=== PATIENT | female | born 1995 | race Caucasian/White ===

== ENCOUNTER → 2021-01-23 | Outpatient (CLI) | payer MEDICAID ==
[2021-01-23 12:30] LABS: BASOPHILS % (AUTO) 0 % (0-10); EOSINOPHILS # (AUTO) 0.2 10^3/uL (0.0-0.3); EOSINOPHILS % (AUTO) 2 % (0-10); HEMATOCRIT 39 % (35-52); HEMOGLOBIN 13.4 g/dL (11.5-16.0); LYMPHOCYTES # (AUTO) 1.4 X 10^3 (1.0-4.0); LYMPHOCYTES % (AUTO) 12 % (12-44); MEAN CORPUSCULAR HEMOGLOBIN 31 pg (25-34); MEAN CORPUSCULAR HGB CONC 34 g/dL (32-36); MEAN CORPUSCULAR VOLUME 90 fL (80-99); MEAN PLATELET VOLUME 10.7 fL (9.0-12.2); MONOCYTES # (AUTO) 0.9 X 10^3 (0.0-1.0); MONOCYTES % (AUTO) 8 % (0-12); NEUTROPHILS # (AUTO) 9.5 X 10^3 (1.8-7.8); NEUTROPHILS % (AUTO) 79 % (42-75); PLATELET COUNT 219 10^3/uL (130-400)
[2021-01-23 12:56] LABS: CREATININE SERUM 0.76 MG/DL (0.60-1.30); POTASSIUM 4.2 MMOL/L (3.6-5.0)
[2021-01-23 12:57] LABS: ALBUMIN 3.5 GM/DL (3.2-4.5); BILIRUBIN,TOTAL 0.2 MG/DL (0.1-1.0); CALCIUM 9.2 MG/DL (8.5-10.1); TOTAL PROTEIN 6.3 GM/DL (6.4-8.2)
[2021-01-23 15:07] LABS: URIC ACID 6.5 MG/DL (2.6-7.2)
== END ==
LOC: LAB FS 11:55
PROVIDERS: ATTEND Family Medicine
DX: O16.3 Unspecified maternal hypertension, third trimester (principal)
CPT/HCPCS: 36415; 80053; 82570; 83615; 84156; 84550; 85025

== ENCOUNTER 2021-02-04 04:47 | Inpatient (IN) | payer MEDICAID ==
[~2021-02-04] VITALS: Ht 179 cm; Wt 109.0 kg
--- NOTE | 2021-02-04 05:28 | ED General ---
General Stated Complaint: LIVE Source of Information: Patient, EMS Exam Limitations: No Limitations History of Present Illness Date Seen by Provider: Feb 04, 2021 Time Seen by Provider: 05:00 Initial Comments 25-year-old female that has had 1 prior to term and numerous miscarriages that she is unsure how many coming in due to delivering a baby. Due date was February 20 making the baby 37 weeks and 5 days term. No complications with the per the mother. Delivered via EMS on the doorstep seconds before coming into the emergency department. EMS reports mom had normal vitals and no significant hemorrhage. Further elements of the history and physical unable to be obtained due to the acuity of the condition. Allergies and Home Medications Allergies Coded Allergies: amoxicillin (Verified Allergy, Unknown, 02/04/21) Patient Home Medication List Home Medication List Reviewed: Yes Vit W-Ca,Fe,FA(<1 mg) ( Vitamins) 1 Each Tablet, 1 EACH PO DAILY, (Reported) Entered as Reported by: NARENDRA COHEN on 02/04/21 0961 Last Action: New Order Review of Systems Review of Systems Constitutional: no symptoms reported EENTM: No blurred vision Respiratory: No cough Cardiovascular: No chest pain Gastrointestinal: No nausea Genitourinary: No dysuria Musculoskeletal: No back pain Skin: No rash Psychiatric/Neurological: No Symptoms Reported Hematologic/Lymphatic: No Symptoms Reported Immunological/Allergic: no symptoms reported All Other Systems Reviewed Negative Unless Noted: Yes Past Ueyrker-Mewkcs-Ywiqdm Hx Patient Social History Tobacco Use?: Yes Past Medical History : Yes Physical Exam Vital Signs Vital Signs - First Documented 02/04/21 04:47 Temp 36.8 Pulse 70 Resp 30 B/P (MAP) 142/94 (110) Pulse Ox 98 O2 Delivery Room Air Capillary Refill : Height, Weight, BMI Height: '" Weight: lbs. oz. kg; BMI Method: General Appearance: No Apparent Distress, WD/WN HEENT: PERRL/EOMI, Normal ENT Inspection, Pharynx Normal Neck: Full Range of Motion, Normal Inspection, Non Tender, Supple Respiratory: Chest Non Tender, Lungs Clear, Normal Breath Sounds, No Accessory Muscle Use, No Respiratory Distress Cardiovascular: Regular Rate, Rhythm, No Edema, Normal Peripheral Pulses Gastrointestinal: Normal Bowel Sounds, Non Tender, Soft, Other (Contracted nery hair) Genital/Rectal: Other (Placenta delivered, no vaginal bleeding, no large vaginal lacerations) Back: Normal Inspection Extremity: Normal Capillary Refill, Normal Inspection, Normal Range of Motion, Non Tender, No Calf Tenderness Neurologic/Psychiatric: Alert, No Motor/Sensory Deficits, Normal Mood/Affect Skin: Normal Color, Warm/Dry Lymphatic: No Adenopathy Progress/Results/Core Measures Suspected Sepsis SIRS Temperature: Pulse: Respiratory Rate: Laboratory Tests 02/04/21 05:30: White Blood Count 19.2H Blood Pressure / Mean: Laboratory Tests 02/04/21 05:30: Creatinine 0.63, Platelet Count 270 Results/Orders Lab Results Laboratory Tests Test 02/04/21 05:30 Range/Units White Blood Count 19.2 H 4.3-11.0 10^3/uL Red Blood Count 4.48 3.80-5.11 10^6/uL Hemoglobin 14.1 11.5-16.0 g/dL Hematocrit 40 35-52 % Mean Corpuscular Volume 90 80-99 fL Mean Corpuscular Hemoglobin 31 25-34 pg Mean Corpuscular Hemoglobin Concent 35 32-36 g/dL Red Cell Distribution Width 12.4 10.0-14.5 % Platelet Count 270 130-400 10^3/uL Mean Platelet Volume 10.8 9.0-12.2 fL Immature Granulocyte % (Auto) 0 % Neutrophils (%) (Auto) 90 H 42-75 % Lymphocytes (%) (Auto) 5 L 12-44 % Monocytes (%) (Auto) 4 0-12 % Eosinophils (%) (Auto) 0 0-10 % Basophils (%) (Auto) 0 0-10 % Neutrophils # (Auto) 17.2 H 1.8-7.8 X 10^3 Lymphocytes # (Auto) 1.0 1.0-4.0 X 10^3 Monocytes # (Auto) 0.8 0.0-1.0 X 10^3 Eosinophils # (Auto) 0.0 0.0-0.3 10^3/uL Basophils # (Auto) 0.0 0.0-0.1 10^3/uL Immature Granulocyte # (Auto) 0.1 0.0-0.1 10^3/uL Neutrophils % (Manual) 84 % Lymphocytes % (Manual) 8 % Monocytes % (Manual) 3 % Band Neutrophils 5 % Platelet Estimate ADEQUATE Blood Morphology Comment NORMAL Sodium Level 134 L 135-145 MMOL/L Potassium Level 3.9 3.6-5.0 MMOL/L Chloride Level 102 98-107 MMOL/L Carbon Dioxide Level 19 L 21-32 MMOL/L Anion Gap 13 5-14 MMOL/L Blood Urea Nitrogen 9 7-18 MG/DL Creatinine 0.63 0.60-1.30 MG/DL Estimat Glomerular Filtration Rate 115 BUN/Creatinine Ratio 14 Glucose Level 101 70-105 MG/DL Calcium Level 9.2 8.5-10.1 MG/DL My Orders Orders - SARA COOL MD Cbc With Automated Diff (02/04/21 05:32) Basic Metabolic Panel (02/04/21 05:32) Manual Differential (02/04/21 05:30) Vital Signs/I&O 02/04/21 02/04/21 02/04/21 02/04/21 04:47 05:00 05:15 05:30 Temp 36.8 Pulse 70 73 68 82 Resp 30 21 19 19 B/P (MAP) 142/94 (110) 140/86 139/85 125/73 Pulse Ox 98 97 97 98 O2 Delivery Room Air 02/04/21 02/04/21 05:45 06:06 Temp 36.8 Pulse 76 76 Resp 19 19 B/P (MAP) 128/72 128/72 Pulse Ox 98 98 O2 Delivery Room Air Capillary Refill : Progress Note : Progress Note 25-year-old female with above history coming in due to precipitous delivery. Baby and placenta had been delivered on doorstep just prior to walking in. I immediately did fundal massage on mother and she had minimal to no vaginal bleeding. Vitals remained stable. Mom was GBS negative per her report. Do not have oxytocin available, but mother is doing well without. Ordered basic labs for her. I contacted Dr. Rowe with [facility] who [facility]. Less than 250cc bleeding after delivery. 3 vessel cord. Placenta is intact. No large vaginal/perineal laceration. Mother did well. Encouraged skin to skin. Departure Impression Primary Impression: Delivery normal Disposition: 30 STILL A PATIENT Condition: Stable Admissions Decision to Admit Reason: Admit from ER (General) Decision to Admit/Date: Feb 04, 2021 Time/Decision to Admit Time: 05:30 Transfer Transfer Reason: Patient preference Time Spoke to Accepting Phy: 05:[address] Rowe accepted to [facility] Transfer Facility: [facility] Method of Transfer: EMS Departure-Patient Inst. Referrals: JONATHAN DOWNING APRN (PCP) Primary Care Physician [facility] (Family) Primary Care Physician SARA COOL MD Feb 04, 2021 05:28
[2021-02-04] MEDS ORDERED: OXYTOCIN PRE-MIX DRIP 500 ML IV SCH (05:45)
[2021-02-04 07:13] LABS: HEMATOCRIT 40 % (35-52); HEMOGLOBIN 14.1 g/dL (11.5-16.0); MEAN CORPUSCULAR HEMOGLOBIN 31 pg (25-34); MEAN CORPUSCULAR HGB CONC 35 g/dL (32-36); MEAN CORPUSCULAR VOLUME 90 fL (80-99); MEAN PLATELET VOLUME 10.8 fL (9.0-12.2); NEUTROPHILS % (AUTO) 90 % (42-75); PLATELET COUNT 270 10^3/uL (130-400); WHITE BLOOD COUNT 19.2 10^3/uL (4.3-11.0)
[2021-02-04 07:14] LABS: BASOPHILS % (AUTO) 0 % (0-10); EOSINOPHILS % (AUTO) 0 % (0-10); LYMPHOCYTES % (AUTO) 5 % (12-44); MONOCYTES # (AUTO) 0.8 X 10^3 (0.0-1.0); MONOCYTES % (AUTO) 4 % (0-12); NEUTROPHILS # (AUTO) 17.2 X 10^3 (1.8-7.8)
[2021-02-04 07:16] LABS: POTASSIUM 3.9 MMOL/L (3.6-5.0)
[2021-02-04 07:18] LABS: CALCIUM 9.2 MG/DL (8.5-10.1)
[2021-02-04 07:20] LABS: CREATININE SERUM 0.63 MG/DL (0.60-1.30)
[2021-02-04 07:29] LABS: BAND NEUTROPHILS 5 %; LYMPHOCYTES % (MANUAL) 8 %; MONOCYTES % (MANUAL) 3 %; NEUTROPHILS % (MANUAL) 84 %; PLATELET ESTIMATE ADEQUATE; RBC MORPH NORMAL
[2021-02-04 07:30] VITALS: BP 134/79
[2021-02-04] MEDS ORDERED: OXYTOCIN PRE-MIX DRIP 500 ML IV ONE ×2 (07:30)
--- NOTE | 2021-02-04 07:40 | History & Physical-OB ---
OB - Chief Complaint & HPI Date/Time Date of Admission: Date of Admission: Feb 04, 2021 at 06:50 Date seen by a Provider: Feb 04, 2021 Time Seen by a Provider: 07:05 Chief Complaint/History OB-Reason for Admission/Chief: Onset of Labor Hx : 5 Hx Para: 1 Expected Date of Delivery: Feb 20, 2021 Gestational Age in Weeks: 37 Gestational Age in Days: 5 Admission Nurse Assessment Rev: Yes History of Labs GBS negative Allergies and Home Medications Allergies Coded Allergies: amoxicillin (Verified Allergy, Unknown, 02/04/21) Patient Home Medication List Home Medication List Reviewed: Yes OB - History Hx of Present Care: Yes Ultrasounds: Normal mid trimester US Obstetrical Complications: None Medical Complications: None Patient Past Medical History multiple SAB in past OB - Admission Exam Physical Exam Vitals: Vital Signs 02/04/21 06:06 Temp 36.8 Pulse 76 Resp 19 B/P (MAP) 128/72 Pulse Ox 98 O2 Delivery Room Air HEENT: Moist Membranes Heart: Rhythm Normal Abdomen: Other (firm uterus) Labs Laboratory Tests Test 02/04/21 05:30 Range/Units White Blood Count 19.2 H 4.3-11.0 10^3/uL Red Blood Count 4.48 3.80-5.11 10^6/uL Hemoglobin 14.1 11.5-16.0 g/dL Hematocrit 40 35-52 % Mean Corpuscular Volume 90 80-99 fL Mean Corpuscular Hemoglobin 31 25-34 pg Mean Corpuscular Hemoglobin Concent 35 32-36 g/dL Red Cell Distribution Width 12.4 10.0-14.5 % Platelet Count 270 130-400 10^3/uL Mean Platelet Volume 10.8 9.0-12.2 fL Immature Granulocyte % (Auto) 0 % Neutrophils (%) (Auto) 90 H 42-75 % Lymphocytes (%) (Auto) 5 L 12-44 % Monocytes (%) (Auto) 4 0-12 % Eosinophils (%) (Auto) 0 0-10 % Basophils (%) (Auto) 0 0-10 % Neutrophils # (Auto) 17.2 H 1.8-7.8 X 10^3 Lymphocytes # (Auto) 1.0 1.0-4.0 X 10^3 Monocytes # (Auto) 0.8 0.0-1.0 X 10^3 Eosinophils # (Auto) 0.0 0.0-0.3 10^3/uL Basophils # (Auto) 0.0 0.0-0.1 10^3/uL Immature Granulocyte # (Auto) 0.1 0.0-0.1 10^3/uL Neutrophils % (Manual) 84 % Lymphocytes % (Manual) 8 % Monocytes % (Manual) 3 % Band Neutrophils 5 % Platelet Estimate ADEQUATE Blood Morphology Comment NORMAL Sodium Level 134 L 135-145 MMOL/L Potassium Level 3.9 3.6-5.0 MMOL/L Chloride Level 102 98-107 MMOL/L Carbon Dioxide Level 19 L 21-32 MMOL/L Anion Gap 13 5-14 MMOL/L Blood Urea Nitrogen 9 7-18 MG/DL Creatinine 0.63 0.60-1.30 MG/DL Estimat Glomerular Filtration Rate 115 BUN/Creatinine Ratio 14 Glucose Level 101 70-105 MG/DL Calcium Level 9.2 8.5-10.1 MG/DL OB - Assessment/Plan/Diagnosis Assessment Assessment: other (Delivered spontaneous in ambulance in route to hospital) Admission Dx 1. IUP at 37w5d gestation Admission Status: Inpatient Order (span 2 midnights) Reason for Inpatient Admission: Care following delivery Plan Other Plan -pitocin on floor -social services specialist consult LAURYN GRANADO MD Feb 04, 2021 07:40
[2021-02-04] MEDS ORDERED: TETANUS,DIPTH,PERTUSS P/F (BOOSTRIX) 0.5 ML VIAL IM ONE (07:45)
[2021-02-04] MEDS ORDERED: WITCH HAZEL(TUCKS) 40 EA JAR TOP PRN (07:45)
[2021-02-04] MEDS ORDERED: MEASLES,MUMPS,RUBELLA 1 EA INJ SQ ONE (07:45)
[2021-02-04] MEDS ORDERED: NALOXONE 0.4 MG/ML 1 ML (NARCAN) VIAL IV PRN (07:45)
[2021-02-04] MEDS ORDERED: BENZOCAINE/MENTHOL (DERMOPLAST) 56 ML CAN TP PRN (07:45)
[2021-02-04 08:00] VITALS: BP 134/79
[2021-02-04] MEDS ORDERED: DOCUSATE SODIUM 100 MG (COLACE) CAP PO SCH (09:00)
[2021-02-04] MEDS ORDERED: PREN1TAB79 PO (09:31)
[2021-02-04 09:45] VITALS: BP 136/70
[2021-02-04 10:44] LABS: BILIRUBIN,URINE NEGATIVE (NEGATIVE); CLARITY,URINE CLOUDY; COLOR,URINE RED; GLUCOSE, URINE (UA) NEGATIVE (NEGATIVE); KETONES,URINE NEGATIVE (NEGATIVE); LEUKOCYTE ESTERASE ,URINE 1+ (NEGATIVE); NITRITE,URINE NEGATIVE (NEGATIVE); PH,URINE 6.5 (5-9); PROTEIN,URINE 2+ (NEGATIVE)
[2021-02-04 11:37] LABS: AMPHETAMINE SCREEN, URINE NEGATIVE (NEGATIVE); BARBITURATE SCREEN URINE NEGATIVE (NEGATIVE); BENZODIAZEPINES SCREEN URINE NEGATIVE (NEGATIVE); CANNABINOID SCREEN, URINE NEGATIVE (NEGATIVE); COCAINE SCREEN URINE NEGATIVE (NEGATIVE); METHADONE STAT NEGATIVE (NEGATIVE); METHAMPHETAMINE SCREEN URINE S NEGATIVE (NEGATIVE); OPIATE SCREEN URINE NEGATIVE (NEGATIVE); OXYCODONE STAT NEGATIVE (NEGATIVE); PROPOXYPHENE STAT NEGATIVE (NEGATIVE); TRICYCLIC ANTIDEPRESSANTS SCRE NEGATIVE (NEGATIVE)
[2021-02-04 11:43] LABS: RBC,URINE TNTC /HPF
[2021-02-04 11:51] LABS: BACTERIA,URINE MODERATE /HPF
[2021-02-04] MEDS ORDERED: ACETAMINOPHEN 500 MG TAB (TYLENOL) PO SCH (12:00)
[2021-02-04] MEDS ORDERED: IBUPROFEN 600 MG (MOTRIN) TAB PO SCH (12:00)
[2021-02-04 13:00] VITALS: BP 125/69
[2021-02-04] MEDS ORDERED: CATHETER FLUSH 10 ML SYR IV SCH (14:00)
[2021-02-04 14:15] VITALS: BP 125/69
--- NOTE | 2021-02-05 07:04 | Short Stay Summary ---
History of Present Illness History of Present Illness Reason for visit/HPI 25-year-old 5 now term 2 who initially presented to labor and delivery via EMS after delivering in parking lot at [facility] emergency department. Her care was obtained through [facility] in [facility] Her due date is February 20, 2021. Date of Admission Feb 04, 2021 at 06:50 Date of Discharge Feb 04, 2021 at 14:15 Time Seen by Provider: 09:30 Attending Physician Joni Rowe MD Admitting Physician [facility] Consult Allergies and Home Medications Allergies Coded Allergies: amoxicillin (Verified Allergy, Unknown, 02/04/21) Patient Home Medication List Home Medication List Reviewed: Yes Vit W-Ca,Fe,FA(<1 mg) ( Vitamins) 1 Each Tablet, 1 EACH PO DAILY, (Reported) Entered as Reported by: NARENDRA COHEN on 02/04/21 0931 Last Action: New Order Past Ezuzlli-Nosdyc-Gwbopd Hx Patient Social History Marrital Status: cohabiting Number of Children: 1 Smoking Status: Current Everyday Smoker Have you traveled recently?: No Alcohol Use?: No Pt feels they are or have been: No Tobacco type used: Cigarettes Reproductive System : Yes Expected Date of Delivery: Feb 20, 2021 Hx : 5 Hx Para: 1 Review of Systems Constitutional: see HPI Physical Exam Vital Signs Vital Signs - First Documented 02/04/21 04:47 Temp 36.8 Pulse 70 Resp 30 B/P (MAP) 142/94 (110) Pulse Ox 98 O2 Delivery Room Air Capillary Refill : Less Than 3 Seconds Height, Weight, BMI Height: '" Weight: lbs. oz. kg; 34.01 BMI Method: General Appearance: No Apparent Distress HEENT: Pharynx Normal Neck: Non Tender, Supple Respiratory: Chest Non Tender Cardiovascular: Regular Rate, Rhythm Gastrointestinal: Soft (with uterus firm on dismissal) Short Stay Diagnosis Discharge Diagnosis-Short Stay Admission Diagnosis: 1. Intrauterine at 37 weeks--delivered Final Discharge Diagnosis: 1. Intrauterine at 37 weeks--delivered outside of the hospital Conclusion Labs Laboratory Tests 02/04/21 10:15: Urine Color REDH, Urine Clarity CLOUDY, Urine pH 6.5, Urine Specific [place] 1.010L, Urine Protein 2+H, Urine Glucose (UA) NEGATIVE, Urine Ketones NEGATIVE, Urine Nitrite NEGATIVE, Urine Bilirubin NEGATIVE, Urine Urobilinogen 1.0, Urine Leukocyte Esterase 1+H, Urine RBC (Auto) 3+H, Urine RBC TNTCH, Urine WBC 10-25H, Urine Crystals NONE, Urine Bacteria MODERATEH, Urine Casts NONE, Urine Mucus NEGATIVE, Urine Culture Indicated YES, Urine Opiates Screen NEGATIVE, Urine Oxycodone Screen NEGATIVE, Urine Methadone Screen NEGATIVE, Urine Propoxyphene Screen NEGATIVE, Urine Barbiturates Screen NEGATIVE, Ur Tricyclic Antidepressants Screen NEGATIVE, Urine Phencyclidine Screen NEGATIVE, Urine Amphetamines Screen NEGATIVE, Urine Methamphetamines Screen NEGATIVE, Urine Benzodiazepines Screen NEGATIVE, Urine Cocaine Screen NEGATIVE, Urine Cannabinoids Screen NEGATIVE Conclusion/Plan Since her son is transferred to [place] and she is having uncomplicated course, it was felt best to release mother to go be with her son. There was a hemoglobin upon presentation of 14.1. She will follow-up with Dr. Dorantes at [facility] in 6 weeks. Copy Copies To 1: ASHLEE DORANTES MD, DANIEL J MD Feb 05, 2021 07:04
== END 2021-02-04 14:15 | disposition home or self-care (01) | DRG 776 ==
LOC: EDUNIT# 04:47 → ER FS 04:52 → LDRP 06:50
PROVIDERS: ADMIT Family Medicine; ATTEND Family Medicine
DX: O99.335 Smoking (tobacco) complicating the puerperium (principal); F17.210 Nicotine dependence, cigarettes, uncomplicated
CPT/HCPCS: 36415; 59409; 80048; 80306; 81000; 85007; 85027; 87088